=== PATIENT | female | born 1985 | race Hispanic/Latino ===

== ENCOUNTER 2025-03-08 21:29 | Emergency (ER) | payer SELFPAY ==
[~2025-03-08] VITALS: Ht 157.5 cm; Wt 68.0 kg
[2025-03-08] MEDS: LIDOCAINE HCL 2% VISCOUS 15 ML UDCUP PO ONE (22:47)
[2025-03-08] MEDS: DICYCLOMINE HCL 10 MG/5 ML ML PO ONE (22:48)
[2025-03-08] MEDS: MAG/ALUM/SIMETH 30 ML UDCUP PO ONE (22:48)
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
[2025-03-08 23:09] VITALS: BP 142/76; PULSE 82; RESP 16; TEMP 98.1; O2SAT 98
== END 2025-03-08 23:12 | disposition home or self-care (01) ==
LOC: EDH 21:29
DX: K29.70 Gastritis, unspecified, without bleeding (principal); F41.9 Anxiety disorder, unspecified
CPT/HCPCS: 99284

== ENCOUNTER 2025-03-18 14:06 | Emergency (ER) | payer MEDICAID ==
[~2025-03-18] VITALS: Ht 157.5 cm; Wt 72.6 kg
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
[2025-03-18] MEDS ORDERED: IBUP-2077 PO (15:04)
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
--- NOTE | 2025-03-18 15:21 | NUR ---
PT DC PENDING FAMILY ARRIVAL FOR TRANSPO
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
[2025-03-18 16:12] VITALS: BP 124/70; PULSE 65; RESP 16; TEMP 98; O2SAT 100
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
== END 2025-03-18 16:32 | disposition home or self-care (01) ==
LOC: EDH 14:06
DX: S40.021A Contusion of right upper arm, initial encounter (principal); S50.11XA Contusion of right forearm, initial encounter; F41.9 Anxiety disorder, unspecified; Y08.89XA Assault by other specified means, initial encounter; Y93.89 Activity, other specified; Y92.89 Other specified places as the place of occurrence of the external cause; Y99.8 Other external cause status
CPT/HCPCS: 73060; 73090; 99284